=== PATIENT | male | born 1975 | race Caucasian/White ===

== ENCOUNTER 2024-09-28 06:44 | Outpatient (CLI) | payer OTHER ==
[2024-09-28 07:35] LABS: BASO % 0.3 % (0.1-1.2); EOS # 0.13 (0.04-0.54); EOS % 1.3 % (0.7-7.0); HEMATOCRIT 41.1 % (40.1-51.0); HEMOGLOBIN 13.2 g/dL (13.7-17.5); MEAN CORPUSCULAR HEMOGLOBIN 24.9 pg (25.6-32.2); MONO # 0.63 (0.24-0.82); MONO % 6.3 % (4.7-12.5); NEUT # 6.88 (1.56-6.13); NEUT % 68.9 % (34.0-71.1); PLATELET COUNT 216 K/uL (163-369); RED BLOOD COUNT 5.31 M/uL (4.63-6.08); RED CELL DISTRIBUTION WIDTH 14.9 % (11.6-14.4)
[2024-09-28 08:20] LABS: % SATURACION 11.4 % (20-50); ALBUMIN 3.8 gm/dL (3.4-5.0); BILIRUBIN TOTAL 0.48 mg/dL (0.3-1.2); CALCIUM 9.5 mg/dL (8.5-10.1); CREATININE SERUM 1.04 mg/dL (0.70-1.30); GFR 75.9; GLOBULINA 3.5 G/DL (2.4-3.5); POTASSIUM 3.81 mEq/L (3.5-5.1); TOTAL PROTEIN 7.3 gm/dL (6.4-8.2); TSH 1.31 uIU/mL (0.358-3.74)
[2024-09-28 11:23] LABS: FOLIC ACID > 20.00 ng/ml (4.78-20)
[2024-09-28 13:06] LABS: MANUAL PLATELET COUNT 226
[2024-09-29 05:11] LABS: ANTI THYROID PEROXIDASE < 9 IU/mL (0-34)
[2024-09-29 09:08] LABS: TRANSFERIN 264 mg/dL (177-329)
[2024-09-29 13:08] LABS: hgb a 97.8 % (96.4-98.8); hgb a2 2.2 % (1.8-3.2); hgb f 0 % (0.0-2.0); hgb s 0 % (0.0)
[2024-09-30 23:07] LABS: g6pd quant 249 (127-427); rbc 5.25 x10E6/uL (4.14-5.80)
== END 2024-09-28 06:57 | disposition home or self-care (01) ==
LOC: LAB 06:44
PROVIDERS: ATTEND Internal Medicine Hematology & Oncology
DX: D50.8 Other iron deficiency anemias (principal); R79.9 Abnormal finding of blood chemistry, unspecified; I10 Essential (primary) hypertension; R74.02 Elevation of levels of lactic acid dehydrogenase [LDH]; K76.89 Other specified diseases of liver; D63.8 Anemia in other chronic diseases classified elsewhere; D55.0 Anemia due to glucose-6-phosphate dehydrogenase [G6PD] deficiency; D51.1 Vitamin B12 deficiency anemia due to selective vitamin B12 malabsorption with proteinuria; D51.0 Vitamin B12 deficiency anemia due to intrinsic factor deficiency; E03.8 Other specified hypothyroidism; E06.3 Autoimmune thyroiditis

== ENCOUNTER 2024-09-28 07:26 | Outpatient (CLI) | payer OTHER | END 2024-09-28 07:30 | disposition home or self-care (01) | LOC: SONOGRAMA 07:26 | PROVIDERS: ATTEND Internal Medicine Hematology & Oncology | DX: E04.2 Nontoxic multinodular goiter (principal); D51.3 Other dietary vitamin B12 deficiency anemia; D50.8 Other iron deficiency anemias; I10 Essential (primary) hypertension; E78.2 Mixed hyperlipidemia; I67.9 Cerebrovascular disease, unspecified ==